=== PATIENT | male | born 1960 | race Caucasian/White ===

== ENCOUNTER 2018-03-24 14:55 | Inpatient (IN) | payer OTHER ==
[2018-03-24 16:45] VITALS: BMI 17.6
--- NOTE | 2018-03-24 19:30 | HP ---
CIWA Score - Admission Criteria [facility] Guidelines: Admission for Medically Managed Detox: Requires at least one of the followin. CIWA greater than 12 2. Seizures within the past 24 hours 3. Delirium tremens within the past 24 hours 4. Hallucinations within the past 24 hours 5. Acute intervention needed for co occurring medical disorder 6. Acute intervention needed for co occurring psychiatric disorder 7. Severe withdrawal that cannot be handled at a lower level of care (continued vomiting, continued diarrhea, abnormal vital signs) requiring intravenous medication and/or fluids 8. Admission ROS [facility] Chief Complaint: "I'm here for rehab". Pt states he is in a methadone program in [place]- 60mg a day. But still using marijuana (1 bag/week), cocaine ($60/day), heroin (1-2 bags /day). Denies fentanyl use. Here to stop using these illicit substances. Sent here by his OTP. Denies alcohol use. 57 yo with no medical problems and on no medications. h/o pos PPD-INH/B6 in 2004 Allergies/Adverse Reactions: Allergies Allergy/AdvReac Type Severity Reaction Status Date / Time No Known Allergies Allergy Verified 03/24/18 17:46 - Ebola screening Have you traveled outside of the country in the last 21 days: No Have you had contact with anyone from an Ebola affected area: No Have you been sick,other than usual withdrawal symptoms: No - Review of Systems Constitutional: No Symptoms Reported, Unintentional Wgt. Loss (using cocaine) EENT: reports: No Symptoms Reported Respiratory: reports: No Symptoms reported : reports: No Symptoms Reported Musculoskeletal: reports: No Symptoms Reported Integumentary: reports: No Symptoms Reported Neuro: reports: No Symptoms reported Endocrine: reports: No Symptoms Reported Hematology: reports: No Symptoms Reported Psychiatric: reports: No Sypmtoms Reported Patient History - Patient Medical History Hx Anemia: No Hx Asthma: Yes Hx Chronic Obstructive Pulmonary Disease (COPD): No Hx Cancer: No Hx Cardiac Disorders: No Hx Congestive Heart Failure: No Hx Hypertension: No Hx Hypercholesterolemia: No Hx Pacemaker: No HX Cerebrovascular Accident: No Hx Seizures: No Hx Dementia: No Hx Diabetes: No Hx Gastrointestinal Disorders: No Hx Liver Disease: No Hx Genitourinary Disorders: No Hx Sexually Transmitted Disorders: No Hx Renal Disease (ESRD): No Hx Thyroid Disease: No Hx Human Immunodeficiency Virus (HIV): No Hx Hepatitis C: No Hx Depression: No Hx Suicide Attempt: No Hx Schizophrenia: No - Patient Surgical History Past Surgical History: Yes Hx Abdominal Surgery: No (hernia) Other Surgical History: bilateral inguinal hernia repair Anesthesia Reaction: No - PPD History Previous Implant?: Yes Documented Results: Positive w/o proof - Smoking Cessation Smoking history: Current every day smoker Have you smoked in the past 12 months: Yes Aproximately how many cigarettes per day: 8 Hx Chewing Tobacco Use: No Initiated information on smoking cessation: Yes 'Breaking Loose' booklet given: 03/24/18 - Substance & Tx. History Hx Alcohol Use: No Substance Use Type: Cocaine, Heroin, Marijuana Hx Substance Use Treatment: Yes (in an OTP) - Substances Abused Crack Route: Smoking Frequency: Daily Amount used: $100 Age of first use: 54 Date of Last Use: 03/23/18 Heroin Route: Inhalation Frequency: Daily Amount used: 2-3 bags Age of first use: 21 Date of Last Use: 03/24/18 marijuana Frequency: 1-2 times per week Family Disease History - Family Disease History Family Disease History: Diabetes: Mother, Heart Disease: Mother, Other: Father ( FATHER WAS AN ALCOHOLIC AND ) Admission Physical Exam BHS - Vital Signs Vital Signs: Vital Signs - 24 hr 03/24/18 16:41 Temperature 97.8 F Pulse Rate 68 Respiratory 18 Rate Blood Pressure 109/66 - Physical General Appearance: Yes: Within Normal Limits, Cachetic HEENTM: Yes: Within Normal Limits, EOMI, Hearing grossly Normal, Pharynx Normal Respiratory: Yes: Within Normal Limits, Lungs Clear, Normal Breath Sounds, No Respiratory Distress Neck: Yes: Within Normal Limits Breast: Yes: Within Normal Limits Cardiology: Yes: Within Normal Limits, Regular Rhythm, Regular Rate Abdominal: Yes: Within Normal Limits Genitourinary: Yes: Within Normal Limits Back: Yes: Within Normal Limits Musculoskeletal: Yes: Within Normal Limits Extremities: Yes: Within Normal Limits Neurological: Yes: Within Normal Limits, Fully Oriented, Alert, Motor Strength 5 /5, Normal Mood/Affect, Normal Response Integumentary: Yes: Within Normal Limits Lymphatic: Yes: Within Normal Limits - Diagnostic (1) Opioid dependence on agonist therapy Current Visit: Yes Status: Acute (2) Asthma Current Visit: No Status: Active (3) Cannabis use disorder, mild, abuse Current Visit: Yes Status: Acute (4) Cocaine use disorder Current Visit: Yes Status: Acute (5) Heroin use Current Visit: Yes Status: Acute BHS Breath Alcohol Content Breath Alcohol Content: 0 Urine Drug Screen - Results Drug Screen Negative: No Urine Drug Screen Results: THC-Marijuana, GARY-Cocaine, OPI-Opiates, BAR- Barbiturates, MTD-Methadone, FEN-Fentanyl
[2018-03-24] MEDS ORDERED: MAGNESIUM HYDROX 2400MG/30ML ORAL SUSPENSION 30 ML CUP PO PRN (19:37)
[2018-03-24] MEDS ORDERED: ACETAMINOPHEN 325 MG TABLET (FP) PO PRN (19:37)
[2018-03-24] MEDS ORDERED: guaiFENesin/D-METHORPHAN HB 10 ML UNIT-DOSE CUPS PO PRN (19:37)
[2018-03-24] MEDS ORDERED: LOPERAMIDE HCL 2 MG CAPSULE PO PRN (19:37)
[2018-03-24] MEDS ORDERED: P-EPHED 60MG/TRIPROLIDI 2.5MG TABLET PO PRN (19:37)
[2018-03-24] MEDS ORDERED: MAG HYDROX/AL HYDROX/SIMETH 30 ML UNIT-DOSE CUP PO PRN (19:37)
[2018-03-24] MEDS ORDERED: MAGNESIUM CITRATE 300 ML BOTTLE PO PRN (19:37)
[2018-03-24] MEDS ORDERED: MENTHOL/PHENOL 1 EACH UD MM PRN (19:37)
[2018-03-24] MEDS ORDERED: IBUPROFEN 400 MG TABLET (FP) PO PRN (19:37)
[2018-03-24] MEDS ORDERED: MELATONIN 5 MG TABLETS PO PRN (22:00)
[2018-03-24] MEDS: THIAMINE HCL 100 MG TABLET (FP) PO SCH (22:30)
[2018-03-25] MEDS ORDERED: METHADONE HCL 10 MG TABLET PO SCH (08:00)
[2018-03-25] MEDS ORDERED: METHADONE HCL 10 MG TABLET ONE (09:23)
[2018-03-25] MEDS ORDERED: METHADONE HCL 40 MG DISPERSABLE TABLET ONE (09:23)
[2018-03-25] MEDS: METHADONE 40 MG, METHADONE 20 MG PO SCH (09:24)
[2018-03-25] MEDS: PRENATAL VITAMINS W/ FOLIC ACID TABLET (FP) PO SCH (09:24)
[2018-03-25 10:27] LABS: HEMATOCRIT 34.8 % (35.4-49); HEMOGLOBIN 11.5 GM/dL (11.7-16.9); MCH 29.8 pg (25.7-33.7); MCHC 33.1 g/dl (32.0-35.9); MEAN CELL VOLUME 90.2 fl (80-96); MEAN PLT VOLUME 8.6 fl (7.5-11.1); PLATELET COUNT 354 K/MM3 (134-434); RBC 3.86 M/mm3 (4.00-5.60); RDW 12.8 % (11.9-15.9); WHITE BLOOD COUNT 6.7 K/mm3 (4.0-10.0)
[2018-03-25 11:10] LABS: ALBUMIN 2.3 g/dl (3.4-5.0); ALK PHOS 71 U/L (45-117); ANION GAP 9 MMOL/L (8-16); BILIRUBIN,TOTAL 0.3 mg/dL (0.2-1); BLOOD UREA NITROGEN 15 mg/dL (7-18); CALCIUM 8.1 mg/dL (8.5-10.1); CHLORIDE 101 mmol/L (98-107); CO2 29 mmol/L (21-32); CREATININE 0.7 mg/dL (0.55-1.3); GLUCOSE,RANDOM 90 mg/dL (74-106); SGOT/AST 12 U/L (15-37); SGPT/ALT 24 U/L (13-61); SODIUM 139 mmol/L (136-145); TOT PROT 6.1 g/dl (6.4-8.2)
--- NOTE | 2018-03-25 15:06 | HP ---
Psychiatrist Admission - Data Date of interview: 03/25/18 Admission source: [facility]. Referred by his [facility]TP program. Identifying data: Readmission to [facility] for this 57 y/o male, referred by his [facility] program for rehabilitation care at [address] Issues : heroin, cocaine/crack, cannabis and nicotine dependence co-morbid with Bipolar Disorder. Patient is single, a father of one, undomiciled, unemployed and supported on food stamps. Medical History: Consistent with bronchial asthma, cachexia and past history of bilateral inguinal herniorraphy. Psychiatric History: Patient endorses a history of five psychiatric [facility]izations [facility]. Diagnosed with Bipolar Disorder. Mr Antonio declares that he has been prescribed psychotropic medications but he " never took them ". No names recalled. No affiliation with [facility]PD programs or contact with psychiatric care providers. Patient denies history of suicide attempts. Physical/Sexual Abuse/Trauma History: Patient denies. Additional Comment: Profile of substance abuse. Details as follows in this segment of gabbi [facility] report : Smoking history: Current every day smoker. Have you smoked in the past 12 months: Yes. Aproximately how many cigarettes per day: 8. Hx Chewing Tobacco Use: No. Initiated information on smoking cessation: Yes. 'Breaking Loose' booklet given: 03/24/18. - Substance & Tx. History. Hx Alcohol Use: No. Substance Use Type: Cocaine, Heroin, Marijuana. Hx Substance Use Treatment: Yes (in an [facility]). - Substances Abused. Crack. Route: Smoking. Frequency: Daily. Amount used: $100. Age of first use: 54. Date of Last Use: 03/23/18. Heroin. Route: Inhalation. Frequency: Daily. Amount used: 2-3 bags. Age of first use: 21. Date of Last Use: 03/24/18. marijuana. Frequency: 1-2 times per week. Urine Drug Screen Results: THC- Marijuana, GARY-Cocaine, OPI-Opiates, BAR-Barbiturates, MTD-Methadone, FEN- Fentanyl. Noted. Vital Signs: Vital Signs - 24 hr 03/24/18 03/25/18 03/25/18 16:41 00:30 03:30 Temperature 97.8 F Pulse Rate 68 Respiratory 18 18 18 Rate Blood Pressure 109/66 03/25/18 06:49 Temperature 98.6 F Pulse Rate 57 L Respiratory 16 Rate Blood Pressure 114/66 Allergies/Adverse Reactions: Allergies Allergy/AdvReac Type Severity Reaction Status Date / Time No Known Allergies Allergy Verified 03/24/18 17:46 - Substance Abuse/Tx History Hx Alcohol Use: No Hx Substance Use: Yes (heroin, crack/cocaine, nicotine, cannabis) Substance Use Type: Cocaine (spends 80 dollars daily ; started using crack 3 years ago), Heroin (uses heroin via inhalation ; uses 5-10 bags daily ; onset of abuse : age 20), Marijuana (onset of abuse during adolescence ; on/off use ; admits to using marihuana 1-3 times a week) Hx Substance Use Treatment: Yes Mental Status Exam - Mental Status Exam Alert and Oriented to: Time, Place, Person Cognitive Function: Grossly Intact Patient Appearance: Unkempt (cachectic), Disheveled Mood: Sad, Nervous, Withdrawn Affect: Mood Congruent, Constricted Patient Behavior: Passive, Fatigued, Cooperative Speech Pattern: Clear, Appropriate Voice Loudness: Normal Thought Process: Goal Oriented Thought Disorder: Not Present Hallucinations: Denies Suicidal Ideation: Denies Homicidal Ideation: Denies Insight/Judgement: Fair Sleep: Poorly, Difficulty falling asleep Appetite: Poor, Weight loss (significant weight loss attributable, as per patient, to poor nutrition, heavy substance abuse and severe living conditions ) Muscle strength/Tone: Normal Gait/Station: Normal Psychiatric Findings - Problem List ([place] 1, 2,3) (1) Opioid dependence on agonist therapy Current Visit: Yes Status: Acute (2) Cannabis use disorder, mild, abuse Current Visit: Yes Status: Acute (3) Cocaine use disorder Current Visit: Yes Status: Acute (4) Substance induced mood disorder Current Visit: Yes Status: Acute (5) Insomnia Current Visit: Yes Status: Acute (6) Non-compliant patient Current Visit: Yes Status: Chronic - Initial Treatment Plan Initial Treatment Plan: Psychoeducation. Sleep hygiene. NA meetings. Supportive/ group therapy. Insomnia is addressed with melatonin at bedtime. Patient is in agreement with this careplan. Observation.
[2018-03-25 21:23] LABS: URINE APPEARANCE CLOUDY; URINE BILIRUBIN NEGATIVE (<2.0 mg/dL); URINE COLOR YELLOW; URINE GLUCOSE (UA) NEGATIVE (NEGATIVE); URINE KETONE NEGATIVE (NEGATIVE); URINE LEUK ESTERASE NEGATIVE (NEGATIVE); URINE NITRITE NEGATIVE (NEGATIVE); URINE PROTEIN NEGATIVE (NEGATIVE)
[2018-03-25] MEDS: THIAMINE HCL 100 MG TABLET (FP) PO SCH (22:36)
[2018-03-26] MEDS ORDERED: METHADONE HCL 10 MG TABLET ONE (02:51)
[2018-03-26] MEDS ORDERED: METHADONE HCL 40 MG DISPERSABLE TABLET ONE (02:51)
[2018-03-26] MEDS: METHADONE 40 MG, METHADONE 20 MG PO SCH (06:15)
[2018-03-26] MEDS: PRENATAL VITAMINS W/ FOLIC ACID TABLET (FP) PO SCH (11:19)
[2018-03-26] MEDS: THIAMINE HCL 100 MG TABLET (FP) PO SCH (22:12)
[2018-03-27] MEDS ORDERED: METHADONE HCL 10 MG TABLET ONE (03:47)
[2018-03-27] MEDS ORDERED: METHADONE HCL 40 MG DISPERSABLE TABLET ONE (03:48)
[2018-03-27] MEDS: METHADONE 40 MG, METHADONE 20 MG PO SCH (06:21)
[2018-03-27] MEDS: PRENATAL VITAMINS W/ FOLIC ACID TABLET (FP) PO SCH (10:30)
[2018-03-27] MEDS: THIAMINE HCL 100 MG TABLET (FP) PO SCH (22:30)
[2018-03-28] MEDS ORDERED: METHADONE HCL 10 MG TABLET ONE (04:29)
[2018-03-28] MEDS ORDERED: METHADONE HCL 40 MG DISPERSABLE TABLET ONE (04:29)
[2018-03-28] MEDS: METHADONE 40 MG, METHADONE 20 MG PO SCH (06:17)
[2018-03-28] MEDS: PRENATAL VITAMINS W/ FOLIC ACID TABLET (FP) PO SCH (10:12)
[2018-03-28] MEDS: THIAMINE HCL 100 MG TABLET (FP) PO SCH (22:22)
[2018-03-29] MEDS ORDERED: METHADONE HCL 40 MG DISPERSABLE TABLET ONE (04:13)
[2018-03-29] MEDS ORDERED: METHADONE HCL 10 MG TABLET ONE (04:13)
[2018-03-29] MEDS: METHADONE 40 MG, METHADONE 20 MG PO SCH (05:58)
[2018-03-29] MEDS: PRENATAL VITAMINS W/ FOLIC ACID TABLET (FP) PO SCH (10:25)
[2018-03-29] MEDS: THIAMINE HCL 100 MG TABLET (FP) PO SCH (22:09)
[2018-03-30] MEDS ORDERED: METHADONE HCL 40 MG DISPERSABLE TABLET ONE (04:27)
[2018-03-30] MEDS ORDERED: METHADONE HCL 10 MG TABLET ONE (04:27)
[2018-03-30] MEDS: METHADONE 40 MG, METHADONE 20 MG PO SCH (06:18)
[2018-03-30] MEDS: PRENATAL VITAMINS W/ FOLIC ACID TABLET (FP) PO SCH (10:18)
[2018-03-30] MEDS: THIAMINE HCL 100 MG TABLET (FP) PO SCH (21:56)
[2018-03-31] MEDS ORDERED: METHADONE HCL 40 MG DISPERSABLE TABLET ONE (03:13)
[2018-03-31] MEDS ORDERED: METHADONE HCL 10 MG TABLET ONE (03:13)
[2018-03-31] MEDS: METHADONE 40 MG, METHADONE 20 MG PO SCH (06:01)
[2018-03-31] MEDS: PRENATAL VITAMINS W/ FOLIC ACID TABLET (FP) PO SCH (10:43)
[2018-03-31] MEDS ORDERED: SIMETHICONE 80 MG TAB.CHEW (FP) PO PRN (18:54)
[2018-03-31] MEDS ORDERED: TRIMETHOBENZAMIDE HCL 200MG/2ML INJ IM PRN (18:56)
--- NOTE | 2018-03-31 19:00 | PN ---
BHS Progress Note Note: Pt c/o sudden onset pain in abdomen. States it started after dinner. Sharp pain in abd, some nausea, no diarrhea. VS: WNL abd- with no localized pain- Ass/plan: gas pain/gastritis from meal Plan: prn maalox/simethicone/tigan monitor closely
[2018-03-31] MEDS: THIAMINE HCL 100 MG TABLET (FP) PO SCH (22:13)
[2018-04-01] MEDS ORDERED: METHADONE HCL 10 MG TABLET ONE (04:15)
[2018-04-01] MEDS ORDERED: METHADONE HCL 40 MG DISPERSABLE TABLET ONE (04:15)
[2018-04-01] MEDS: METHADONE 40 MG, METHADONE 20 MG PO SCH (06:28)
[2018-04-01] MEDS: PRENATAL VITAMINS W/ FOLIC ACID TABLET (FP) PO SCH (10:13)
[2018-04-01] MEDS: THIAMINE HCL 100 MG TABLET (FP) PO SCH (22:28)
[2018-04-02] MEDS ORDERED: METHADONE HCL 10 MG TABLET ONE (04:16)
[2018-04-02] MEDS ORDERED: METHADONE HCL 40 MG DISPERSABLE TABLET ONE (04:16)
[2018-04-02] MEDS: METHADONE 40 MG, METHADONE 20 MG PO SCH (06:05)
[2018-04-02] MEDS: PRENATAL VITAMINS W/ FOLIC ACID TABLET (FP) PO SCH (10:35)
[2018-04-02] MEDS: hydrOXYzine PAMOATE 50 MG CAPSULE (FP) PO PRN (21:54)
[2018-04-02] MEDS: THIAMINE HCL 100 MG TABLET (FP) PO SCH (21:55)
[2018-04-03] MEDS ORDERED: METHADONE HCL 10 MG TABLET ONE (04:11)
[2018-04-03] MEDS ORDERED: METHADONE HCL 40 MG DISPERSABLE TABLET ONE (04:12)
[2018-04-03] MEDS: METHADONE 40 MG, METHADONE 20 MG PO SCH (06:07)
[2018-04-03] MEDS: PRENATAL VITAMINS W/ FOLIC ACID TABLET (FP) PO SCH (10:31)
[2018-04-03] MEDS: hydrOXYzine PAMOATE 50 MG CAPSULE (FP) PO PRN (21:43)
[2018-04-03] MEDS: THIAMINE HCL 100 MG TABLET (FP) PO SCH (21:44)
[2018-04-04] MEDS ORDERED: METHADONE HCL 10 MG TABLET ONE (02:43)
[2018-04-04] MEDS ORDERED: METHADONE HCL 40 MG DISPERSABLE TABLET ONE (02:43)
[2018-04-04] MEDS: METHADONE 40 MG, METHADONE 20 MG PO SCH (06:12)
[2018-04-04 06:58] VITALS: BP 122/68; PULSE 58; TEMP 98.1
[2018-04-04] MEDS: PRENATAL VITAMINS W/ FOLIC ACID TABLET (FP) PO SCH (10:34)
--- NOTE | 2018-04-04 13:45 | PN ---
Psychiatric Progress Note Vital Signs: Vital Signs Period Temp Pulse Resp BP Sys/Contreras Pulse Ox Last 24 Hr 98.1 F 58 16-18 122/68 Date of Session: 04/04/18 Chief Complaint:: Discharge visit HPI: Significant for Cannabis,Opioid dependence and Cocaine dependence. ROS: BA. Current Medications: Active Medications Generic Name Dose Route Start Last Admin Trade Name Freq PRN Reason Stop Dose Admin Acetaminophen 650 mg 03/24/18 19:37 Tylenol - PO Q4H PRN FEVER Al Hydroxide/Mg Hydroxide 30 ml 03/24/18 19:37 03/31/18 18:49 Mylanta Oral Suspension - PO 30 ml Q6H PRN Administration DYSPEPSIA Eucalyptus/Menthol/Phenol/Sorbitol 1 each 03/24/18 19:37 Cepastat Lozenge - MM Q4H PRN SORE THROAT Guaifenesin 10 ml 03/24/18 19:37 Robitussin Dm - PO Q6H PRN COUGH Hydroxyzine Pamoate 50 mg 03/24/18 19:37 04/03/18 21:43 Vistaril - PO 50 mg Q4H PRN Administration AGITATION Ibuprofen 400 mg 03/24/18 19:37 Motrin - PO Q6H PRN Pain level 4-6 Loperamide HCl 4 mg 03/24/18 19:37 04/01/18 10:14 Imodium - PO 4 mg Q6H PRN Administration DIARRHEA Magnesium Citrate 300 ml 03/24/18 19:37 Citroma - PO Q48H PRN CONSTIPATION Magnesium Hydroxide 30 ml 03/24/18 19:37 Milk Of Magnesia - PO DAILY PRN CONSTIPATION Melatonin 5 mg 03/24/18 22:00 Melatonin PO HS PRN INSOMNIA Methadone HCl 40 mg/ Methadone 60 mg 04/01/18 06:00 04/04/18 06:12 HCl 20 mg PO 04/07/18 05:59 60 mg DAILY@0600 PAPA Administration Multivit/Folic Acid/Iron 1 tab 03/25/18 10:00 04/04/18 10:34 Vitamins (Sjr) - PO 1 tab DAILY PAPA Administration Pseudoephedrine/Triprolidine 1 combo 03/24/18 19:37 Actifed - PO TID PRN NASAL CONGESTION Simethicone 80 mg 03/31/18 18:54 03/31/18 22:12 Mylicon - PO 80 mg Q4H PRN Administration GAS Thiamine HCl 100 mg 03/24/18 22:00 04/03/18 21:44 Vitamin B1 - PO Not Given HS PAPA Trimethobenzamide HCl 200 mg 03/31/18 18:56 Tigan Injection - IM Q8H PRN NAUSEA Current Side Effect: No Lab tests ordered: No Lab tests reviewed: Yes Provider note:: Patient completed this program today.HE HAS MET HIS TREATMENT GOALS AND WILL CONTINUE TO ADDRESS HIS ISSUES ON OUTPATIENT BASIS AT [facility]. patient identifieis areas of difficulties and behaviors which contribute to relapse.Supportive therapy provided focusing on relapse prevention. Patient is stable for discharge today. Total face to face time:: 30 Mental Status Exam - Mental Status Exam Alert and Oriented to: Time, Place, Person Cognitive Function: Grossly Intact Patient Appearance: Well Groomed Mood: Euthymic Affect: Appropriate, Mood Congruent Patient Behavior: Appropriate, Cooperative Speech Pattern: Clear Voice Loudness: Normal Thought Process: Goal Oriented Thought Disorder: Not Present Hallucinations: Denies Suicidal Ideation: Denies Homicidal Ideation: Denies Insight/Judgement: Good Sleep: Well Appetite: Good Muscle strength/Tone: Normal Gait/Station: Normal Psychiatric Treatment Plan - Problem List (1) Cannabis use disorder, mild, abuse Current Visit: Yes (2) Cocaine use disorder Current Visit: Yes (3) Opioid dependence on agonist therapy Current Visit: Yes (4) Substance induced mood disorder Current Visit: Yes (5) Asthma Current Visit: No
== END 2018-04-04 13:55 | disposition home or self-care (01) | DRG 772 ==
LOC: YASAS 14:55 → Y3W 19:35
PROVIDERS: ADMIT Psychiatry & Neurology Psychiatry; ATTEND Psychiatry & Neurology Psychiatry
PROC: HZ42ZZZ Group Counseling for Substance Abuse Treatment, Cognitive-Behavioral (ICD-10-PCS; principal; 2018-03-24)
DX: F11.20 Opioid dependence, uncomplicated (principal); F14.20 Cocaine dependence, uncomplicated; F12.10 Cannabis abuse, uncomplicated; F17.210 Nicotine dependence, cigarettes, uncomplicated; F31.9 Bipolar disorder, unspecified; F19.24 Other psychoactive substance dependence with psychoactive substance-induced mood disorder; G47.00 Insomnia, unspecified; J45.909 Unspecified asthma, uncomplicated; Z91.19 Patient's noncompliance with other medical treatment and regimen
CPT/HCPCS: 36415; 71046-TC-FY; 80053; 81003; 85027; 86593; 87389

== ENCOUNTER 2023-08-05 17:33 | Inpatient (IN) | payer OTHER ==
[2023-08-05 18:08] VITALS: BMI 21.1
[2023-08-05] MEDS ORDERED: NALOXONE HCL (KLOXXADO) 8 MG SPRAY NS PRN (21:30)
[2023-08-05] MEDS ORDERED: LOPERAMIDE HCL 2 MG CAPSULE PO PRN (21:30)
[2023-08-05] MEDS ORDERED: IBUPROFEN 600 MG TABLET (FP) PO PRN (21:30)
[2023-08-05] MEDS ORDERED: DICYCLOMINE HCL 10 MG CAPSULE PO PRN (21:30)
[2023-08-05] MEDS ORDERED: ONDANSETRON *ODT* 4 MG TABLET SL PRN (21:30)
[2023-08-05] MEDS ORDERED: BENZOCAINE/MENTHOL (CHLORASEPTIC ) LOZENGE MM PRN (21:30)
[2023-08-05] MEDS ORDERED: ACETAMINOPHEN 325 MG TABLET (FP) PO PRN (21:30)
[2023-08-05] MEDS ORDERED: cloNIDine HCL 0.1 MG TABLET PO PRN (21:30)
[2023-08-05] MEDS ORDERED: NICOTINE POLACRILEX 2 MG GUM BUC PRN (21:30)
[2023-08-05] MEDS ORDERED: MAGNESIUM HYDROX 2400MG/30ML ORAL SUSPENSION 30 ML CUP PO PRN (21:30)
[2023-08-05] MEDS ORDERED: IBUPROFEN 400 MG TABLET (FP) PO PRN (21:30)
[2023-08-05] MEDS ORDERED: guaiFENesin 600 MG TABLET.ER (FP) PO PRN (21:30)
[2023-08-05] MEDS ORDERED: MAG HYDROX/AL HYDROX/SIMETH 30 ML UNIT-DOSE CUP PO PRN (21:30)
[2023-08-05] MEDS ORDERED: BENZONATATE 200 MG CAPSULE PO PRN (21:30)
[2023-08-05] MEDS ORDERED: POLYETHYLENE GLYCOL (HEALTHYLAX) 3350 17 GM PACKET PO PRN (21:30)
[2023-08-05] MEDS ORDERED: BISMUTH SUBSALICYLATE 524 MG/30 ML PO PRN (21:30)
[2023-08-05] MEDS ORDERED: NALOXONE HCL 0.4 MG/ML VIAL IM PRN (21:30)
[2023-08-05] MEDS: methaDONE HCL 10 MG TABLET (FOR DETOX USE ONLY) PO ONE (21:50)
[2023-08-05] MEDS ORDERED: methaDONE HCL 10 MG TABLET (FOR DETOX USE ONLY) ONE (22:31)
[2023-08-05] MEDS ORDERED: MELATONIN 5 MG TABLETS ONE (22:32)
[2023-08-05] MEDS: MELATONIN 5 MG TABLETS PO SCH (22:40)
[2023-08-05] MEDS: THIAMINE HCL 100 MG TABLET (FP) PO SCH (22:40)
[2023-08-06] MEDS: PRENATAL VITAMINS W/ FOLIC ACID TABLET (FP) PO SCH (10:46)
[2023-08-06 11:46] LABS: HEMATOCRIT 31.5 % (35.4-49); HEMOGLOBIN 10.5 GM/dL (11.7-16.9); MCH 29.5 pg (25.7-33.7); MCHC 33.2 g/dl (32.0-35.9); MEAN CELL VOLUME 88.9 fl (80-96); MEAN PLT VOLUME 9.4 fl (7.5-11.1); PLATELET COUNT 186 10^3/uL (134-434); RBC 3.55 M/mm3 (4.00-5.60); RDW 13.6 % (11.9-15.9); WHITE BLOOD COUNT 5.8 K/mm3 (4.0-10.0)
[2023-08-06 11:57] LABS: POTASSIUM 4.1 mmol/L (3.5-5.1)
[2023-08-06 12:12] LABS: CALCIUM 8.7 mg/dL (8.5-10.1)
[2023-08-06 12:13] LABS: ALBUMIN 2.8 g/dl (3.4-5.0); BLOOD UREA NITROGEN 17.6 mg/dL (7-18)
[2023-08-06 12:14] LABS: CREATININE 0.7 mg/dL (0.55-1.3)
[2023-08-06 12:16] LABS: BILIRUBIN,TOTAL 0.3 mg/dL (0.2-1); TOT PROT 5.8 g/dl (6.4-8.2)
[2023-08-07] MEDS: methaDONE HCL 10 MG TABLET (FOR DETOX USE ONLY) PO ONE (10:21)
[2023-08-08] MEDS: METHOCARBAMOL 500 MG TABLET PO PRN (10:19)
[2023-08-09] MEDS: methaDONE HCL 10 MG TABLET (FOR DETOX USE ONLY) PO ONE (10:12)
[2023-08-09 13:25] VITALS: RESP 18
[2023-08-09 17:00] VITALS: BP 134/77; PULSE 78; TEMP 98
== END 2023-08-10 09:32 | disposition home or self-care (01) | DRG 773 ==
LOC: YASAS 17:33 → Y3N 22:42
PROVIDERS: ADMIT Allergy & Immunology; ATTEND Surgery
PROC: HZ2ZZZZ Detoxification Services for Substance Abuse Treatment (ICD-10-PCS; principal; 2023-08-05)
DX: F11.23 Opioid dependence with withdrawal (principal); F14.20 Cocaine dependence, uncomplicated; F12.20 Cannabis dependence, uncomplicated; F17.210 Nicotine dependence, cigarettes, uncomplicated; G47.00 Insomnia, unspecified; J45.909 Unspecified asthma, uncomplicated; Z59.02 Unsheltered homelessness
CPT/HCPCS: 36415; 71046-TC-FY; 80053; 85027; 86780; 93005; 93010